=== PATIENT | female | born 1965 | race Caucasian/White ===

== ENCOUNTER 2016-07-05 16:19 | Emergency (ER) | payer MEDICARE, BC ==
[2016-07-05] MEDS ORDERED: PROMETHAZINE HCL 25 MG/ML VIAL IM ONE (17:17)
[2016-07-05] MEDS ORDERED: HYDROMORPHONE HCL 1 MG/ML CPJ IM ONE (17:17)
--- NOTE | 2016-07-05 17:17 | Emergency Department Record ---
History of Present Illness - General Chief Complaint: Headache Migraine Stated Complaint: MIGRAINE Time Seen by Provider: 07/05/16 17:06 Source: Patient, RN notes reviewed Mode of Arrival: Ambulatory - History of Present Illness Initial Comments: headache and she went to Dr. Manuel's office and they no longer give shots and he sent her to the ED for a headache shot and she said she used always got shots for this headache in her office. MD Complaint: Headache Onset/Timin -: Days(s) Onset Description: Gradual Consistency: Constant Improves With: Nothing Associated Symptoms: Nausea, Photophobia, Sensitivity to sound Treatments Prior to Arrival: Migraine medication Treatment Prior to Arrival Comment:: Domiin migraine - Related Data Home Medications Medication Instructions Recorded Confirmed Last Taken Albuterol Sulfate [Ventolin Hfa] 2 puff IH QID PRN 12/15/13 07/05/16 07/04/16 Alendronate Sodium [Fosamax] 70 mg PO MO 12/15/13 07/05/16 07/04/16 Fluticasone Propionate [Flovent 2 puff IH BID 12/15/13 07/05/16 07/04/16 Hfa] Gabapentin [Neurontin] 300 mg PO TID 12/15/13 07/05/16 07/04/16 Hydrocodone/Acetaminophen [[place] 1 each PO QID PRN 12/15/13 07/05/16 07/04/16 10-325 Tablet] Clonidine [Catapres-Tts 1] 1 each TD ASDIR 07/05/16 07/05/16 07/04/16 Loratadine [Claritin] 10 mg PO DAILY 07/05/16 07/05/16 07/04/16 Omeprazole [Prilosec] 20 mg PO DAILY 07/05/16 07/05/16 07/04/16 Allergies Allergy/AdvReac Type Severity Reaction Status Date / Time aspirin Allergy RASH Verified 12/15/13 13:49 clarithromycin [From Biaxin] Allergy RASH Verified 12/15/13 13:49 Latex, Natural Rubber Allergy RASH Verified 12/15/13 13:49 morphine Allergy SWELLING Verified 12/15/13 13:49 (GENERAL) Travel Screening - Travel/Exposure Within Last 30 Days Have you traveled within the last 30 days?: No - Travel/Exposure Within Last Year Have you traveled outside the [place] in the last year?: No - Additonal Travel Details Have you been exposed to anyone with a communicable illness?: No - Travel Symptoms Symptom Screening: None Review of Systems Reviewed: No additional complaints except as noted below Constitutional: Reports: As per HPI. Denies: Chills, Fever, Malaise, Night sweats, Weakness, Weight change Eyes: Reports: As per HPI. Denies: Eye discharge, Eye pain, Photophobia, Vision change ENT: Reports: As per HPI. Denies: Congestion, Dental pain, Ear pain, Epistaxis , Hearing loss, Throat pain Respiratory: Reports: As per HPI. Denies: Cough, Dyspnea, Hemoptysis, Stridor, Wheezes Cardiovascular: Reports: As per HPI. Denies: Arrhythmia, Chest pain, Dyspnea on exertion, Edema, Murmurs, Orthopnea, Palpitations, Paroxysmal nocturnal dyspnea, Rheumatic Fever, Syncope Endocrine: Reports: As per HPI. Denies: Fatigue, Heat or cold intolerance, Polydipsia, Polyuria Gastrointestinal: Reports: As per HPI, Nausea. Denies: Abdominal pain, Constipation, Diarrhea, Hematemesis, Hematochezia, Melena, Vomiting Genitourinary: Reports: As per HPI. Denies: Abnormal menses, Discharge, Dyspareunia, Dysuria, Frequency, Hematuria, Incontinence, Retention, Urgency Musculoskeletal: Reports: As per HPI. Denies: Arthralgia, Back pain, Gout, Joint swelling, Myalgia, Neck pain Skin: Reports: As per HPI. Denies: Bruising, Change in color, Change in hair/ nails, Lesions, Pruritus, Rash Neurological: Reports: As per HPI. Denies: Abnormal gait, Confusion, Headache, Numbness, Paresthesias, Seizure, Tingling, Tremors, Vertigo, Weakness Psychiatric: Reports: As per HPI. Denies: Anxiety, Auditory hallucinations, Depression, Homicidal thoughts, Suicidal thoughts, Visual hallucinations Hematological/Lymphatic: Reports: As per HPI. Denies: Anemia, Blood Clots, Easy bleeding, Easy bruising, Swollen glands Past Medical History - SOCIAL HISTORY Smoking Status: Current every day smoker Alcohol Use: None Drug Use: None - RESPIRATORY Hx Asthma: Yes - CARDIOVASCULAR Hx Cardio Disorders: No - NEURO Hx Dizziness: Yes Hx Headaches: Yes - GI Hx Abdominal Pain: Yes - Comment:: incontinence cause of bladder sling - ENDOCRINE Hx Endocrine Disorders: No - MUSCULOSKELETAL Hx Arthritis: Yes Hx Back Injury: Yes Hx Fibromyalgia: Yes Comment:: lupus - PSYCH Hx Anxiety: Yes Comment:: panic attack Family Medical History Any Significant Family History?: No Physical Exam - General General Appearance: Alert, Oriented x3, Cooperative, No acute distress - Head Head exam: Normal inspection - Eye Eye exam: Normal appearance, PERRL Pupils: Normal accommodation - ENT ENT exam: Normal exam, Mucous membranes moist, Normal external ear exam, Normal orophraynx, TM's normal bilaterally Ear exam: Normal external inspection. negative: External canal tenderness Nasal Exam: Normal inspection. negative: Discharge, Sinus tenderness Mouth exam: Normal external inspection, Tongue normal Teeth exam: Normal inspection. negative: Dental caries Throat exam: Normal inspection. negative: Tonsillar erythema, Tonsillar exudate - Neck Neck exam: Normal inspection, Full ROM. negative: Tenderness - Respiratory Respiratory exam: Normal lung sounds bilaterally. negative: Respiratory distress - Cardiovascular Cardiovascular Exam: Regular rate, Normal rhythm, Normal heart sounds - GI/Abdominal GI/Abdominal exam: Soft, Normal bowel sounds. negative: Tenderness - Rectal Rectal exam: Deferred - exam: Deferred - Extremities Extremities exam: Normal inspection, Full ROM, Normal capillary refill. negative: Tenderness - Back Back exam: Reports: Normal inspection, Full ROM. Denies: Muscle spasm, Rash noted, Tenderness - Neurological Neurological exam: Alert, Normal gait, Oriented X3, Reflexes normal - Psychiatric Psychiatric exam: Normal affect, Normal mood - Skin Skin exam: Dry, Intact, Normal color, Warm Course Vital Signs 07/05/16 16:20 Temperature 97.8 F Pulse Rate 75 Respiratory 16 Rate Blood Pressure 120/66 Pulse Ox 100 - Reevaluation(s) Reevaluation #1: patient got nauseated with dry heaves with the dilaudid and gave her a shot of zofran. 07/05/16 17:57 Reevaluation #2: She is now feeling better and she wants to go home. 07/05/16 18:10 Disposition Clinical Impression: Headache Qualifiers: Headache type: unspecified Headache chronicity pattern: acute headache Intractability: not intractable Qualified Code(s): R51 - Headache Migraine Qualifiers: Migraine type: unspecified Status migrainosus presence: without status migrainosus Intractability: not intractable Qualified Code(s): G43.909 - Migraine, unspecified, not intractable, without status migrainosus Disposition: Home, Self-Care Condition: (1) Good Instructions: Acute Headache (ED), Migraine Headache (ED) Additional Instructions: follow up with Dr. Manuel in 1-2 days Forms: Patient Portal Access Time of Disposition: 18:11
[2016-07-05] MEDS ORDERED: ONDANSETRON HCL IV 4 MG/2 ML VIAL IM ONE (17:55)
--- NOTE | 2016-07-05 18:16 | Emergency Department Record ---
History of Present Illness - General Chief Complaint: Headache Migraine Stated Complaint: MIGRAINE Time Seen by Provider: 07/05/16 17:06 Mode of Arrival: Ambulatory - History of Present Illness Onset/Timin -: Days(s) Onset Description: Gradual Consistency: Constant Improves With: Nothing Associated Symptoms: Nausea, Photophobia, Sensitivity to sound Treatments Prior to Arrival: Migraine medication Treatment Prior to Arrival Comment:: Aniceto migraine - Related Data Home Medications Medication Instructions Recorded Confirmed Last Taken Albuterol Sulfate [Ventolin Hfa] 2 puff IH QID PRN 12/15/13 07/05/16 07/04/16 Alendronate Sodium [Fosamax] 70 mg PO MO 12/15/13 07/05/16 07/04/16 Fluticasone Propionate [Flovent 2 puff IH BID 12/15/13 07/05/16 07/04/16 Hfa] Gabapentin [Neurontin] 300 mg PO TID 12/15/13 07/05/16 07/04/16 Hydrocodone/Acetaminophen [[place] 1 each PO QID PRN 12/15/13 07/05/16 07/04/16 10-325 Tablet] Clonidine [Catapres-Tts 1] 1 each TD ASDIR 07/05/16 07/05/16 07/04/16 Loratadine [Claritin] 10 mg PO DAILY 07/05/16 07/05/16 07/04/16 Omeprazole [Prilosec] 20 mg PO DAILY 07/05/16 07/05/16 07/04/16 Previous Rx's Medication Instructions Recorded Butalb/Acetaminophen/Caffeine 1 each PO Q6HR #14 tablet 07/05/16 [Fioricet] Allergies Allergy/AdvReac Type Severity Reaction Status Date / Time aspirin Allergy RASH Verified 12/15/13 13:49 clarithromycin [From Biaxin] Allergy RASH Verified 12/15/13 13:49 Latex, Natural Rubber Allergy RASH Verified 12/15/13 13:49 morphine Allergy SWELLING Verified 12/15/13 13:49 (GENERAL) Travel Screening - Travel/Exposure Within Last 30 Days Have you traveled within the last 30 days?: No - Travel/Exposure Within Last Year Have you traveled outside the [place] in the last year?: No - Additonal Travel Details Have you been exposed to anyone with a communicable illness?: No - Travel Symptoms Symptom Screening: None Review of Systems Constitutional: Reports: As per HPI. Denies: Chills, Fever, Malaise, Night sweats, Weakness, Weight change Eyes: Reports: As per HPI. Denies: Eye discharge, Eye pain, Photophobia, Vision change ENT: Reports: As per HPI. Denies: Congestion, Dental pain, Ear pain, Epistaxis , Hearing loss, Throat pain Respiratory: Reports: As per HPI. Denies: Cough, Dyspnea, Hemoptysis, Stridor, Wheezes Cardiovascular: Reports: As per HPI. Denies: Arrhythmia, Chest pain, Dyspnea on exertion, Edema, Murmurs, Orthopnea, Palpitations, Paroxysmal nocturnal dyspnea, Rheumatic Fever, Syncope Endocrine: Reports: As per HPI. Denies: Fatigue, Heat or cold intolerance, Polydipsia, Polyuria Gastrointestinal: Reports: As per HPI, Nausea. Denies: Abdominal pain, Constipation, Diarrhea, Hematemesis, Hematochezia, Melena, Vomiting Genitourinary: Reports: As per HPI. Denies: Abnormal menses, Discharge, Dyspareunia, Dysuria, Frequency, Hematuria, Incontinence, Retention, Urgency Musculoskeletal: Reports: As per HPI. Denies: Arthralgia, Back pain, Gout, Joint swelling, Myalgia, Neck pain Skin: Reports: As per HPI. Denies: Bruising, Change in color, Change in hair/ nails, Lesions, Pruritus, Rash Neurological: Reports: As per HPI. Denies: Abnormal gait, Confusion, Headache, Numbness, Paresthesias, Seizure, Tingling, Tremors, Vertigo, Weakness Psychiatric: Reports: As per HPI. Denies: Anxiety, Auditory hallucinations, Depression, Homicidal thoughts, Suicidal thoughts, Visual hallucinations Hematological/Lymphatic: Reports: As per HPI. Denies: Anemia, Blood Clots, Easy bleeding, Easy bruising, Swollen glands Past Medical History - SOCIAL HISTORY Smoking Status: Current every day smoker Alcohol Use: None Drug Use: None - RESPIRATORY Hx Asthma: Yes - CARDIOVASCULAR Hx Cardio Disorders: No - NEURO Hx Dizziness: Yes Hx Headaches: Yes - GI Hx Abdominal Pain: Yes - Comment:: incontinence cause of bladder sling - ENDOCRINE Hx Endocrine Disorders: No - MUSCULOSKELETAL Hx Arthritis: Yes Hx Back Injury: Yes Hx Fibromyalgia: Yes Comment:: lupus - PSYCH Hx Anxiety: Yes Comment:: panic attack Family Medical History Any Significant Family History?: No Course Vital Signs 07/05/16 16:20 Temperature 97.8 F Pulse Rate 75 Respiratory 16 Rate Blood Pressure 120/66 Pulse Ox 100 Disposition Clinical Impression: Headache Qualifiers: Headache type: unspecified Headache chronicity pattern: acute headache Intractability: not intractable Qualified Code(s): R51 - Headache Migraine Qualifiers: Migraine type: unspecified Status migrainosus presence: without status migrainosus Intractability: not intractable Qualified Code(s): G43.909 - Migraine, unspecified, not intractable, without status migrainosus Disposition: Home, Self-Care Condition: (1) Good Instructions: Migraine Headache (ED), Acute Headache (ED) Additional Instructions: follow up with Dr. Manuel in 1-2 days Prescriptions: Butalb/Acetaminophen/Caffeine [Fioricet] 1 each PO Q6HR #14 tablet Forms: Patient Portal Access
== END 2016-07-05 18:23 | disposition home or self-care (01) ==
LOC: ER 16:19
DX: G43.909 Migraine, unspecified, not intractable, without status migrainosus (principal); R11.0 Nausea; H53.149 Visual discomfort, unspecified
CPT/HCPCS: 99283 ×2; 96372; J1170; J2550